=== PATIENT | female | born 1960 | race Caucasian/White ===

== ENCOUNTER 2020-05-28 12:40 | Outpatient (REF) | payer BC, SELFPAY ==
[2020-05-28 19:11] LABS: Calculated LDL 185 mg/dL (<100); Cholesterol 279 mg/dL (<200); HDL Cholesterol 63 mg/dL (40-60); Triglyceride 156 mg/dL (<150)
== END 2020-05-28 13:00 ==
LOC: NCHCN 12:40
PROVIDERS: PCP Family Medicine; Visit Provider Family Medicine
DX: E78.5 Hyperlipidemia, unspecified (principal)
CPT/HCPCS: 80061

== ENCOUNTER 2020-10-07 14:49 | Outpatient (REF) | payer BC, SELFPAY ==
[2020-10-07 16:22] LABS: ALT 23 U/L (14-59); Calculated LDL 90 mg/dL (<100); Cholesterol 191 mg/dL (<200); Glucose 94 mg/dL (74-106); HDL Cholesterol 69 mg/dL (40-60); Triglyceride 162 mg/dL (<150)
== END 2020-10-07 14:50 | disposition home or self-care (01) ==
LOC: NCHCN 14:49
PROVIDERS: PCP Family Medicine; Visit Provider Family Medicine
DX: Z00.00 Encounter for general adult medical examination without abnormal findings (principal); E78.5 Hyperlipidemia, unspecified
CPT/HCPCS: 80061; 82947; 84460

== ENCOUNTER 2021-10-21 12:07 | Outpatient (REF) | payer BC, SELFPAY ==
[2021-10-21 12:28] LABS: Hemoglobin A1C 5.7 % (<5.7)
[2021-10-21 12:53] LABS: ALT 32 U/L (14-59); TSH (W/Ref FT4) 2.64 uIU/mL (0.36-3.74); Vitamin B12 439 pg/mL (193-986)
== END 2021-10-21 12:08 | disposition home or self-care (01) ==
LOC: NCHCN 12:07
PROVIDERS: PCP Family Medicine; Visit Provider Family Medicine
DX: Z00.00 Encounter for general adult medical examination without abnormal findings (principal); E78.5 Hyperlipidemia, unspecified; R20.2 Paresthesia of skin
CPT/HCPCS: 82607; 83036; 84443; 84460

== ENCOUNTER 2021-11-11 15:52 | Outpatient (REF) | payer BC, SELFPAY ==
[2021-11-14 16:06] LABS: Helicobacter pylori Ag, Feces Negative (Negative)
== END 2021-11-11 15:53 | disposition home or self-care (01) ==
LOC: NCHCN 15:52
PROVIDERS: PCP Family Medicine; Visit Provider Family Medicine
DX: R14.0 Abdominal distension (gaseous) (principal)
CPT/HCPCS: 87338

== ENCOUNTER 2022-10-26 18:30 | Outpatient (REF) | payer BC, SELFPAY ==
[2022-10-26 19:29] LABS: Hemoglobin A1C 5.6 % (<5.7)
[2022-10-26 19:35] LABS: AST 26 U/L (15-37); C-Reactive Protein 0.11 mg/dL (0.0-0.3); Creatine Kinase 88 U/L (26-192)
[2022-10-26 19:47] LABS: Calculated LDL 110 mg/dL (<100); Cholesterol 203 mg/dL (<200); HDL Cholesterol 70 mg/dL (40-60); Triglyceride 118 mg/dL (<150)
== END 2022-10-26 18:31 | disposition home or self-care (01) ==
LOC: NCHCN 18:30
PROVIDERS: PCP Family Medicine; Visit Provider Family Medicine
DX: Z00.00 Encounter for general adult medical examination without abnormal findings (principal); E78.5 Hyperlipidemia, unspecified; Z82.3 Family history of stroke; Z13.1 Encounter for screening for diabetes mellitus
CPT/HCPCS: 80061; 82550; 83036; 84450; 86140

== ENCOUNTER 2024-02-01 15:04 | Outpatient (REF) | payer BC, SELFPAY ==
--- NOTE | 2024-02-01 13:40 | PAPFT_PTH ---
PATIENT: Jesusita Nicholas LOC: [facility]#:[id number] AGE/SX: 63/F ROOM: RE02/01/[address]: Liss Villasenor V : 1960 BED: DIS: 02/01/2024 SPEC #: [id number] RECD: 02/01/24 18:41 STATUS: BELÉN REMartina #: [id number] NUNO: 02/01/24 13:[address]: Liss Villasenor V DEPT: [facility] Cytology RECD BY: Xin Mcconnell Tissues: 1 - CX/ENDOCX FOR PAP SMEARS Procedures: PAP THIN PREP/[facility] Screening HPV DNA PROBE Comments: [id number]
== END 2024-02-01 15:05 | disposition home or self-care (01) ==
LOC: NCHCN 15:04
PROVIDERS: PCP Family Medicine; Visit Provider Family Medicine
DX: Z11.51 Encounter for screening for human papillomavirus (HPV) (principal); Z01.419 Encounter for gynecological examination (general) (routine) without abnormal findings
CPT/HCPCS: 88142; 87624

== ENCOUNTER 2025-04-03 17:11 | Outpatient (REF) | payer BC, SELFPAY ==
[2025-04-03 16:49] LABS: Hemoglobin A1C 5.5 % (<5.7)
== END 2025-04-03 17:12 | disposition home or self-care (01) ==
LOC: NCHCN 17:11
PROVIDERS: PCP Family Medicine; Visit Provider Family Medicine
DX: R03.0 Elevated blood-pressure reading, without diagnosis of hypertension (principal); E78.5 Hyperlipidemia, unspecified; Z83.3 Family history of diabetes mellitus
CPT/HCPCS: 80053; 80061; 83036

== ENCOUNTER 2025-04-06 16:35 | Outpatient (REF) | payer BC, SELFPAY ==
[2025-04-06 17:35] LABS: ALT 16 U/L (14-59); AST 16 U/L (15-37); Albumin 4.1 g/dL (3.4-5.0); Alkaline Phosphatase 73 U/L (46-116); Anion Gap 8.6 mmol/L (3-11); BUN 10 mg/dL (7-18); Bilirubin, Total 0.8 mg/dL (0.2-1.0); CO2 29.4 mmol/L (21.0-32.0); Calcium 9.1 mg/dL (8.5-10.1); Calculated LDL 67 mg/dL (<100); Chloride 102 mmol/L (98-107); Cholesterol 154 mg/dL (<200); Estimated GFR 97.72 (mL/min/1.73m2); Glucose 92 mg/dL (74-106); HDL Cholesterol 70 mg/dL (>or=50); Potassium 4.7 mmol/L (3.5-5.1); Sodium 140 mmol/L (136-145); Total Protein 7.4 g/dL (6.4-8.2); Triglyceride 85 mg/dL (<150)
== END 2025-04-06 16:36 | disposition home or self-care (01) ==
LOC: NCHCN 16:35
PROVIDERS: PCP Family Medicine; Visit Provider Family Medicine
DX: E78.5 Hyperlipidemia, unspecified (principal)
CPT/HCPCS: 80053; 80061